=== PATIENT | female | born 1990 | race Caucasian/White ===

== ENCOUNTER 2016-10-31 09:12 | Emergency (ER) | payer OTHER ==
[2016-10-31 09:24] VITALS: BP 130/69
--- NOTE | 2016-10-31 11:21 | UC ---
Throat Pain/Nasal Johnny HPI - HPI Summary HPI Summary: 26 y/o female presents to the urgent care c/o of nasal congestion with green discharge for the past week and half. She reports occasionally productive green phlegm and mild sore throat. Denies fever. SOB, chest pain,. States Hx of seasonal allergies and is taking Zyrtec on and off and Mucinex and Ibuprofen 200mg PO since yesterday to alleviate symptoms. - History of Current Complaint Chief Complaint: UCRespiratory Stated Complaint: SINUS COMPLAINT Time Seen by Provider: 10/31/16 10:58 Hx Obtained From: Patient Hx Last Menstrual Period: 10/06/16 ?: No Onset/Duration: Gradual Onset, Lasting Days, Still Present Severity: Mild Pain Intensity: 3 Pain Scale Used: 0-10 Numeric Cough: Productive - green phlegm Associated Signs & Symptoms: Positive: Sinus Discomfort, Nasal Discharge - green. Negative: Fever, Vomiting, Rash Related History: Seasonal Allergies - Epiglottits Risk Factors Epiglottis Risk Factors: Negative - Allergies/Home Medications Allergies/Adverse Reactions: Allergies Allergy/AdvReac Type Severity Reaction Status Date / Time Loratadine [From Claritin] Allergy Itching Verified 10/31/16 09:24 Home Medications: Home Medications Cetirizine* [ZyrTEC 10 MG TAB*] 10 mg PO DAILY PRN 10/31/16 [History Confirmed 10/31/16] Ibuprofen TAB* [Advil TAB*] 200 mg PO QID PRN 10/31/16 [History Confirmed ] Lifitegrast [Xiidra] 2 drop BOTH EYES BID 10/31/16 [History Confirmed 10/31/16] guaiFENesin ER TAB [Mucinex*] 600 mg PO TID PRN 10/31/16 [History Confirmed 02/08] PMH/Surg Hx/FS Hx/Imm Hx Previously Healthy: Yes Respiratory History: Other - sessonal allergies Other Respiratory History: Sessonal allergies - Surgical History Surgical History: Yes Surgery Procedure, Year, and Place: NEEDLE REMOVED FROM FOOT, SINUS SUREGERY, WISDOM TEETH - Family History Known Family History: Positive: Cardiac Disease, Diabetes - Social History Occupation: Employed Full-time Lives: Alone Alcohol Use: Occasionally Substance Use Type: None Smoking Status (MU): Never Smoked Tobacco Review of Systems Constitutional: Negative Skin: Negative Eyes: Negative ENT: Sore Throat, Nasal Discharge Respiratory: Cough Cardiovascular: Negative Gastrointestinal: Negative Genitourinary: Negative Motor: Negative Neurovascular: Negative Musculoskeletal: Negative Neurological: Negative Psychological: Negative All Other Systems Reviewed And Are Negative: Yes Physical Exam Triage Information Reviewed: Yes Appearance: Well-Appearing, No Pain Distress, Well-Nourished, Thin Vital Signs: Initial Vital Signs Temp 99.0 F 10/31/16 09:21 Pulse 80 10/31/16 09:21 Resp 16 10/31/16 09:21 BP 130/69 10/31/16 09:21 Pulse Ox 100 10/31/16 09:21 Vital Signs Reviewed: Yes Eyes: Positive: Conjunctiva Clear - PERRLA, EOMI ENT Exam: Normal ENT: Positive: Hearing grossly normal, Pharynx normal, Nasal congestion - nasal mucosa red and swollen with clear nasal discharge, TMs normal. Negative: Tonsillar swelling, Tonsillar exudate Neck exam: Normal Neck: Positive: Supple, Nontender, No Lymphadenopathy Respiratory Exam: Normal Respiratory: Positive: Chest non-tender, Lungs clear, Normal breath sounds Cardiovascular Exam: Normal Cardiovascular: Positive: RRR, No Murmur, Pulses Normal Abdominal Exam: Normal Abdomen Description: Positive: Nontender, No Organomegaly Bowel Sounds: Positive: Present Musculoskeletal Exam: Normal Neurological Exam: Normal Neurological: Positive: Fatigued Skin Exam: Normal Throat Pain/Nasal Course/Dx - Course Course Of Treatment: Nasal congestion with cough: Hx obtained. Pr with HX of sessonal allergies. Taking on and off Zyrtec; and Mucinex and Ibuprofen since yesterday. PE abnormal findings:ENT: Positive: Hearing grossly normal, Pharynx normal, Nasal congestion - nasal mucosa red and swollen with clear nasal discharge, TMs normal. Negative: Tonsillar swelling, Tonsillar exudate. Patient educated on sessonal allergies and Rx Flonase nasal spray. Advised to continue with Zyrtec on a daily basis and use saline [place] to clear his sinusis and increase fluid intake. Patient understood and agreed.. - Differential Dx/Diagnosis Differential Diagnosis/HQI/PQRI: Influenza, Otitis Media, Pharyngitis, Sinusitis , URI Provider Diagnoses: allergic rhinitis Discharge - Discharge Plan Condition: Stable Disposition: HOME Prescriptions: Fluticasone NASAL SPRAY 50MCG* [Flonase NASAL SPRAY 50MCG*] 2 spray BOTH NARES DAILY #1 btl Patient Education Materials: Allergic Rhinitis (ED) Referrals: [facility] [place] [facility] [Outside] Additional Instructions: Please increase fluid intake and rest. Use Flonase as directed to help drain fluid. Continue with Zyrtec, Mucinex and Ibuprofen to relieve symptoms. Return to the clinic or call your PCP if symptoms do not improve.
== END 2016-10-31 11:20 | disposition home or self-care (01) ==
LOC: UCEAST 09:12
DX: J30.9 Allergic rhinitis, unspecified (principal); R53.83 Other fatigue; Z88.8 Allergy status to other drugs, medicaments and biological substances
CPT/HCPCS: 99211; G0463